=== PATIENT | female | born 1955 | race Caucasian/White ===

== ENCOUNTER 2019-11-13 15:05 | Emergency (ER) | payer MEDICARE, OTHER, SELFPAY ==
[2019-11-13 15:06] VITALS: BP 137/74; PULSE 89; RESP 18; TEMP 36.6; O2SAT 99; BMI 22.1
--- NOTE | 2019-11-13 15:25 | EKG12_ITS ---
Test Reason : CP Blood Pressure : / mmHG Vent. Rate : 087 BPM Atrial Rate : 087 BPM P-R Int : 170 ms QRS Dur : 084 ms QT Int : 358 ms P-R-T Axes : 079 049 053 degrees QTc Int : 430 ms Normal sinus rhythm Possible Left atrial enlargement Borderline ECG Confirmed by KIMBERLY GUTIERREZ, ERIN ([id number]), web content editor ИВАН COKER ([id number]) on 11/15/2019 3:14:31 PM Referred By: JOSE/TL/MALLORY Confirmed By:ERIN HARRIS MD
--- NOTE | 2019-11-13 15:27 | CT_ITS ---
STUDY: CTA CHEST REASON FOR EXAM: Female, 64 years old. Chest pain x 2 days, SOB, DB. RADIATION DOSAGE (If Supplied By Facility): CTDIvol = ( 5.05 ) mGy, DLP = ( 149.78 ) mGycm TECHNIQUE: The examination was performed with the intravenous administration of 75mL Isovue 370. Post-processing of the angiographic images was performed, with multiplanar reformation and 3D reconstruction. Individualized dose optimization techniques were used for this CT. COMPARISON: None. FINDINGS: Normal enhancement of the main pulmonary artery and right and left pulmonary arteries. There is limited enhancement of the bilateral peripheral pulmonary arteries. There is no demonstrated pulmonary embolism. Normal thoracic aorta and visualized great vessels. There is no demonstrated aortic dissection. Normal heart and pericardium. Normal mediastinum. Normal hilar regions. Normal visualized trachea and bronchi. The lungs are well expanded. Normal pulmonary parenchyma. There is pleural fibrotic thickening of the pulmonary lung apices. Normal chest wall structures. There are degenerative changes of thoracic spine. Normal visualized upper abdomen. CT/CTA Chest W/WO Contrast IMPRESSION: 1. No central or obvious segmental pulmonary embolism. Incomplete enhancement segmental pulmonary arteries limits the exam. Electronically Signed: Soto Pepe MD ([place]) at 16:37 EST , Service support ,
--- NOTE | 2019-11-13 15:28 | ED.VISSUMM ---
- ER Visit Summary Date of Service: 11/13/19 Chief Complaint: Chest pain History of Present Illness: The patient is a 64 F who presents with chest pain that is been getting worse over the past 4 days. Patient states it is been waxing and waning. Patient states it is pressure and tightness but sharp and stabbing with certain movements. Patient states the pain is localized to the right upper chest and radiates to the right scapular area. Patient states it is worse with exertion. Patient states nothing seems to help it. Patient does report that she had a recent trip to [place] and was having some pain in her left calf. Patient states this was mild and felt like a muscle pull. Patient states that was 1 week ago. Patient denies any fevers or chills. Physical Examination: Vital signs are stable. Patient is afebrile. Patient is in no acute distress. Oral mucosa is pink and moist. Neck is supple. Trachea is midline. There is no JVD noted. Heart was regular rate and rhythm. Lungs are clear and equal bilaterally. Abdomen is soft. Bowel sounds are normal. There is no tenderness. There is no rebound or guarding noted. Skin is warm dry. Cranial nerves II through XII are intact. There are no focal motor or sensory deficits noted. Extremities are intact. There is mild left calf tenderness. Test Results: CBC and basic metabolic profile were within normal limits. Troponin was normal. EKG shows normal sinus rhythm with a rate of 87. There are no acute ST or T wave changes. CTA of the chest was obtained. There is no evidence of pulmonary embolism or aortic dissection. Emergency Department Course and Treatment: Patient was feeling better on reevaluation. Patient was instructed to follow-up with her primary care physician in 5 to 7 days. Patient was instructed to take Tylenol or ibuprofen as needed for pain. Patient was instructed to return if worse in any way. Patient understood and was agreeable with the plan. All questions were answered. Disposition: Discharge home Impression: Right chest pain This note was generated with [employer] dictation software. It may contain incorrect words, spelling, and punctuation that were not noted in review of the chart prior to signing ED Disposition - Plan for ED Patient: Disposition: Home or Assisted Living Diagnosis: Right-sided chest pain Instructions: CHEST PAIN, Uncertain Cause Referrals: Sathya Galvan [Primary Care Provider] - 3-5 Days
[2019-11-13 15:29] VITALS: O2SAT 98
[2019-11-13] MEDS: 0.9% Normal Saline 1,000 ML 1000 ML IV (15:37)
[2019-11-13 15:45] LABS: Absolute Lymphocyte Count 2.34 X10^3/uL (0.83-4.51); Absolute Neutrophil Count 5.7 X10^3/uL (2.0-7.7); Basophil# 0.05 X10^3/uL; Basophil% 0.6 % (0-1); Eosinophil# 0.38 X10^3/uL; Eosinophils% 4.2 % (0-5); Hematocrit 42.7 % (37-47); Hemoglobin 14.1 g/dL (12.0-15.0); Lymphocyte # 2.34 X10^3/ul (4.0); Lymphocyte % 25.8 % (19-41); Mean Corpuscular Hgb 29.9 pg (27.0-32.0); Mean Corpuscular Volume 90.7 fL (81-99); Monocyte# 0.55 X10^3/uL; Monocyte% 6.1 % (0-10); NRBC Flagged by Analyzer 0 % (0-5); Neutrophil # 5.72 X10^3/uL (2.7-7.7); Platelet Count 264 K/mm3 (150-450); RBC Distribution Width CV 12.7 % (11.6-14.6); Red Blood Count 4.71 M/mm3 (4.2-5.4); White Blood Count 9.1 K/mm3 (4.4-11.0)
[2019-11-13 15:55] LABS: ALB/GLOB Ratio 1.1 RATIO (0.9-2.4); AST(SGOT) 20 U/L (15-37); Alanine Aminotransfer ALT/SGPT 18 U/L (13-56); Albumin, Serum 3.9 g/dL (3.2-5.0); Alkaline Phosphatase 98 U/L (45-117); Anion Gap 7 (5-15); BUN 16 mg/dL (7-18); BUN/Creat Ratio 21.9 RATIO (10-20); Calcium,Total 8.7 mg/dL (8.5-10.1); Chloride 106 mmol/L (98-107); Creatinine, Serum 0.73 mg/dL (0.55-1.02); EST Glomerular Filtration Rate 84 mL/min (>60); Est Glom Filt Rate - Afr Amer 102 mL/min (>60); Estimated Creatinine Clearance 45.78 ml/min; Globulin 3.7 g/dL (2.2-4.2); Glucose 97 mg/dL (74-106); Potassium 3.7 mmol/L (3.5-5.1); Protein, Total 7.6 g/dL (6.4-8.2); Sodium Level 140 mmol/L (136-145)
[2019-11-13 16:13] VITALS: BP 116/66; PULSE 84; RESP 15; O2SAT 98
[2019-11-13 17:12] VITALS: BP 116/94; PULSE 83; RESP 18; O2SAT 97
[2019-11-13 17:25] VITALS: BP 124/72; PULSE 84; RESP 15; O2SAT 98
--- NOTE | 2019-11-13 17:26 | ED.RN ---
PT A+OX4. THIS RN EDUCATED PT ON WRITTEN/VERBAL DISCHARGE INSTRUCTIONS AND FOLLOW UP. EDUCATED TO RETURN TO ED FOR ANY NEW OR WORSENED SX. PT VERBALIZES UNDERSTANDING AND DENIES ANY FURTHER QUESTIONS. PT IV D/C AND COVERED WITH 2X2 GAUZE AND PAPER TAPE. PT DRESSES SELF AND AMBULATES OUT OF DEPT BY SELF.
== END 2019-11-13 17:31 | disposition home or self-care (01) ==
PROVIDERS: Emergency Provider Emergency Medicine; PCP Internal Medicine
DX: R07.89 Other chest pain (principal)
CPT/HCPCS: 71275; 80053; 84484; 85025; 93005; 96361; 99284; J7030; Q9967; A4216